=== PATIENT | female | born 2000 | race Two or more races ===

== ENCOUNTER 2020-01-09 20:10 | Emergency (ER) | payer MEDICAID ==
[~2020-01-09] VITALS: Ht 160 cm; Wt 86.2 kg
[2020-01-09 20:30] VITALS: BP 129/88
--- NOTE | 2020-01-09 20:30 | NUR ---
ED Nurse Note: Recieved pt walk in from home, here with c/o anterior chest pain when coughing for past month, pt had covid positive 2 months ago, tested negative since but remained with cough, now with pain from cough, denies fevers or any other s/s.
[2020-01-09] MEDS ORDERED: TYLENOL EXTRA500 MG ORAL (20:53)
[2020-01-09] MEDS ORDERED: PROMETHAZINE-C118 M1 ORAL (20:53)
[2020-01-09] MEDS ORDERED: VENTOLIN HFA18 GM INH (20:53)
[2020-01-09 21:00] VITALS: BP 129/88
[2020-01-09] MEDS ORDERED: Acetaminophen 500mg (ES) tab ORAL ONE (21:00)
--- NOTE | 2020-01-09 21:00 | NUR ---
ER DISCHARGE NOTE: Patient is cleared to be discharged per ERMD, pt is aox4, on room air, with stable vital signs. pt was given dc and prescription instructions, pt was able to verbalize understanding, pt id band removed without complications. pt is able to ambulate with steady gait. pt took all belongings.
--- NOTE | 2020-01-12 08:21 | Emergency Room Report ---
History of Present Illness General Chief Complaint: Upper Respiratory Illness Source: Patient Present Illness HPI 19-year-old female presents with cough x1 week. States that she was tested for Covid and was negative. States that she was prescribed antibiotics and finished them yesterday. States that she has pain to her chest when coughing. Dull, 5 out of 10, nonradiating. No other aggravating relieving factors. Denies any other associated symptoms Allergies: Coded Allergies: No Known Allergies (Unverified , 01/09/20) COVID-19 Screening Contact w/high risk pt: No Experienced COVID-19 symptoms?: No COVID-19 Testing performed [employer]: Yes COVID-19 Screening: Negative COVID-19 COVID-19 Testing Source: jan 02, 2020; outside source Patient History Past Medical History: asthma Past Surgical History: none Pertinent Family History: none Social History: Denies: smoking, alcohol use, drug use Last Menstrual Period: 11/2019 Now: No Immunizations: UTD Reviewed Nursing Documentation: PMH: Agreed; PSxH: Agreed Nursing Documentation-PMH Hx Asthma: Yes Review of Systems All Other Systems: negative except mentioned in HPI Physical Exam Vital Signs Date Time Temp Pulse Resp B/P (MAP) Pulse Ox O2 Delivery O2 Flow Rate FiO2 01/09/20 20:15 98.4 79 16 129/88 (102) 96 Room Air Sp02 EP Interpretation: reviewed, normal General Appearance: no apparent distress, alert, GCS 15, non-toxic Head: normocephalic, atraumatic Eyes: bilateral eye normal inspection, bilateral eye PERRL ENT: hearing grossly normal, normal pharynx, no angioedema, normal voice Neck: full range of motion, supple/symm/no masses Respiratory: lungs clear, normal breath sounds, speaking full sentences, other - Reproducible anterior chest wall pain Cardiovascular #1: regular rate, rhythm, no edema Cardiovascular #2: 2+ carotid (R), 2+ carotid (L), 2+ radial (R), 2+ radial (L), 2+ dorsalis pedis (R), 2+ dorsalis pedis (L) Gastrointestinal: normal bowel sounds, non tender, soft, non-distended, no guarding, no rebound Rectal: deferred Genitourinary: normal inspection, no CVA tenderness Musculoskeletal: back normal, normal range of motion, gait/station normal, non- tender Neurologic: alert, motor strength/tone normal, oriented x3, sensory intact, responsive, speech normal Psychiatric: judgement/insight normal, memory normal, mood/affect normal, no suicidal/homicidal ideation Reflexes: 3+ bicep (R), 3+ bicep (L), 3+ tricep (R), 3+ tricep (L), 3+ knee (R), 3+ knee (L) Skin: no rash Lymphatic: no adenopathy Medical Decision Making Diagnostic Impression: Primary Impression: Upper respiratory infection Qualified Codes: J06.9 - Acute upper respiratory infection, unspecified ER Course Hospital Course 19-year-old female presents with cough with reproducible pain. 1 week history of URI symptoms. Covid negative Differential diagnoses include: URI, pharyngitis, otitis media, asthma Clinical course Patient placed on stretcher. After initial history, physical exam reveals a young female in no acute distress. Bilateral TM unremarkable. There is reproducible anterior chest wall pain. no pharyngeal erythema. No tonsillar exudates. No lymphadenopathy. lungs clear. abdomen soft Discussed findings with patient. Pain is reproducible and muscular likely from prolonged coughing episodes. Will discharge with cough medication. Given Tylenol in ED. Safe for discharge with close outpatient follow-up. I will provide referrals Diagnosis - URI Stable and discharged home with prescription for albuterol, promethazine with codeine, Tylenol. Instructed to followup with PMD. Return to ED if symptoms recur or worsen Last Vital Signs Date Time Temp Pulse Resp B/P (MAP) Pulse Ox O2 Delivery O2 Flow Rate FiO2 01/09/20 21:00 98.4 16 129/88 96 Room Air 01/09/20 20:30 79 Status: improved Disposition: HOME, SELF-CARE Condition: Stable Scripts Albuterol Sulfate (VENTOLIN HFA) 18 Gm Hfa.aer.ad 2 PUFFS INH EVERY 6 HOURS, #18 GM 0 Refills Prov: Luke Schmitz MD 01/09/20 Codeine/Promethazine Hcl* (PROMETHAZINE-CODEINE SYRUP*) 118 Ml Syrup 5 ML ORAL Q6H PRN for For Cough, #118 ML 0 Refills Prov: Luke Schmitz MD 01/09/20 Acetaminophen* (TYLENOL EXTRA STRENGTH*) 500 Mg Tablet 500 MG ORAL Q8H PRN for Prn Headache/Temp > 101, #30 TAB 0 Refills Prov: Luke Schmitz MD 01/09/20 Referrals: [facility],REFERR[facility] (PCP) Stan S[facility] Patient Instructions: Upper Respiratory Infection, Adult Luke Schmitz MD Jan 12, 2020 08:21
== END 2020-01-09 21:00 | disposition home or self-care (01) ==
LOC: EMR 20:44
DX: J06.9 Acute upper respiratory infection, unspecified (principal); J45.909 Unspecified asthma, uncomplicated; Z79.899 Other long term (current) drug therapy
CPT/HCPCS: 99282